=== PATIENT | female | born 1965 | race Caucasian/White ===

== ENCOUNTER 2022-02-10 05:46 | Inpatient (IN) ==
[2022-02-10] MEDS ORDERED: IOPAMIDOL 100 ML BOTTLE IV ONE (05:47)
[2022-02-10] MEDS ORDERED: morphine 4 MG/ML VIAL IV ONE (06:00)
[2022-02-10] MEDS ORDERED: LACTATED RINGERS 1,000 ML IV ONE (06:00)
[2022-02-10] MEDS ORDERED: ONDANSETRON 4 MG/2 ML VIAL IV ONE (06:00)
[2022-02-10] MEDS ORDERED: PANTOPRAZOLE 40 MG VIAL IV ONE (06:00)
[2022-02-10 06:43] LABS: Basophils # (Auto) 0.06 K/mcL (0.00-0.30); Basophils % (Auto) 0.9 % (0.0-2.0); Eosinophils % (Auto) 1.4 % (0.0-7.0); Hematocrit 38.6 % (34.1-44.9); Hemoglobin 13.1 g/dL (11.2-15.7); Lymphocytes # (Auto) 1.73 K/mcL (1.50-4.80); Lymphocytes % (Auto) 24.6 % (15.5-49.0); Mean Cell Volume 97.7 fL (80.0-100.0); Mean Corpuscular HGB Conc 33.9 g/dL (31.0-36.0); Mean Platelet Volume 9.8 fL (8.8-12.5); Monocytes # (Auto) 0.91 K/mcL (0.10-0.90); Neutrophils % (Auto) 59.7 % (38.0-78.0); Platelet Count 154 K/mcL (140-440); RBC 3.95 M/mcL (3.59-5.38); Red Cell Distribution Width 12.9 % (11.5-14.5)
[2022-02-10 06:59] LABS: Alcohol, Blood < 10.0 mg/dL; Alcohol,Blood < 0.010 gm/dL (<0.010)
[2022-02-10] MEDS ORDERED: LORazepam 2 MG/ML VIAL IV ONE (07:02)
[2022-02-10 07:03] LABS: ALT/SGPT 29 U/L (<40); AST/SGOT 37 U/L (<32); Albumin 4.5 gm/dL (3.2-5.2); Albumin/Globulin Ratio 1.3 (1.0-2.3); Alkaline Phosphatase 129 U/L (39-117); Blood Urea Nitrogen 6 mg/dL (6-20); Calcium 9.8 mg/dL (8.6-10.4); Carbon Dioxide 26 mmol/L (22-30); Chloride 94 mmol/L (96-108); Globulin 3.6 gm/dL (2.2-3.7); Glomerular Filtration Rate 83; Glucose 189 mg/dL (70-105)
--- NOTE | 2022-02-10 07:19 | Emergency Department Note ---
Abdominal Pain HPI General Chief Complaint: Nausea/Vomiting/Diarrhea Stated Complaint: Vomiting, Abdominal pain that radiates to flanks Time Seen by Provider: 02/10/22 05:50 Source: patient Mode of arrival: ambulatory Limitations: no limitations History of Present Illness HPI Narrative: Narrative: 56-year-old female history of GERD, daily alcohol drinking, some CKD presenting to the ED with acute abdominal pain. It started yesterday. Is described as epigastric burning-like pain that radiates outwards towards both of her sides. Associated with some nausea, no vomiting. States she is still having regular laura wel movements. But did have a slight bit of diarrhea yesterday. Denies any urinary symptoms vaginal symptoms. Denies any cardiorespiratory complaints or fever chills. Denies any prior abdominal surgeries. Related Data Home Medications Medication Instructions Recorded Confirmed biotin 1 mg capsule 1 mg PO .3xweekly 07/19/17 11/18/21 cranberry 400 mg capsule 400 mg PO .3xweekly 07/19/17 11/18/21 mecobalamin (vitamin B12) 5,000 5,000 mcg PO .3x weekly 07/19/17 11/18/21 mcg disintegrating tablet folic acid 400 mcg tablet 800 mcg PO .3 x weekly 02/13/19 11/18/21 calcium phosphate 250 mg-vitamin 1 tab PO QDAY 08/08/19 11/18/21 D3 10 mcg (400 unit) chewable tablet (Caltrate Gummy Bites) multivitamin 1 tab PO QAM 02/06/20 11/18/21 cholecalciferol (vitamin D3) 400 ea PO .x 5 days 11/12/20 11/18/21 Previous Rx's Medication Instructions Recorded methocarbamol 500 mg tablet 500 mg PO QHS #14 tabs 12/02/20 lisinopril 5 mg tablet 5 mg PO QDAY #90 tabs 07/30/21 Allergies Allergy/AdvReac Type Severity Reaction Status Date / Time No Known Drug Allergies Allergy Verified 02/10/22 05:54 Review of Systems ROS ROS Narrative: Narrative: All systems ED: reviewed and negative except as stated. [facility] Narrative Patient History Narrative: Narrative: Medical/Surgical/Family History All Active Problems (Updated 02/10/22 @ 07:24 by Tulio Valencia DO) Esophageal reflux (Chronic ~08/2016) Hyperlipidemia (Chronic) Alcohol use (Chronic) Atypical squamous cells of undetermined significance (ASC-US) on cervical Pap smear (Chronic) High blood pressure (Chronic ~2019) Protein in urine (Chronic ~2018) Persistent proteinuria (Chronic) Chronic Kidney Disease (Chronic) Encounter for screening colonoscopy for [id number] patient (Acute) CKD stage G1/A3, GFR > 90 and albumin creatinine ratio >300 mg/g (Acute) Cervical paraspinal muscle spasm (Acute) Subcutaneous mass of right thumb (Acute) Orthostatic proteinuria (Chronic) Volvulus (Acute) Medical History Alcohol use drinks 3-4 glasses or wine or beer a day Atypical squamous cells of undetermined significance (ASC-US) on cervical Pap smear Esophageal reflux (~08/2016) epigastric tenderness; intermittent; sometimes occurs in the middle of the night High blood pressure (~2018) Hyperlipidemia Protein in urine (~2018) Surgical History H/O thumb surgery (~1996) right thumb surgery for fracture and screws placed Family History Mother Hx of CABG Coronary artery disease Hyperlipidemia Hypertension Grandmother Breast cancer Other No pertinent family history Social History Alcohol Intake Frequency: 2+ drinks per day Substance Use: does not use Exam Narrative Narrative: Narrative: Constitutional: normally developed, appears in some pain and appears a bit anxious tremulous Head: Normocephalic, atraumatic, Eyes: No Icterus, ENT: Dry mucus membranes, mild tongue fasciculations Neck: Supple, Cardiac: Normal heart sounds, palpable radial pulses, no peripheral edema Pulmonary: Normal respiratory effort. Breath sounds clear, no wheeze, rhonchi, rales, Gastrointestinal: Abdomen soft, non-distended, she is tender throughout slight voluntary guarding no rebound nonrigid Musculoskeletal: No gross deformities, well perfused Skin: warm, dry Neuro: Alert and oriented. General Limitations: no limitations Course Vital Signs Vital signs: Vital Signs Temperature 36.6 C 02/10/22 05:48 Pulse Rate 66 02/10/22 05:48 Respiratory Rate 16 02/10/22 05:48 Blood Pressure 139/95 02/10/22 05:48 Pulse Oximetry (%) 98 02/10/22 05:48 Oxygen Delivery Method 02/10/22 05:48 Temperature 36.6 C 02/10/22 05:48 Pulse Rate 78 02/10/22 07:02 Respiratory Rate 16 02/10/22 05:48 Blood Pressure 137/106 02/10/22 06:31 Pulse Oximetry (%) 92 02/10/22 07:02 Oxygen Delivery Method 02/10/22 05:48 MDM MDM Narrative Medical decision making narrative: Narrative: Patient presents with abdominal pain work-up is initiated including labs urine and CT. Patient is treated symptomatically with analgesics, protonix, Zofran and fluid. Reevaluation she feels slightly better but still a bit tremulous, she is a daily drinker may have some mild alcohol withdrawal did give her a dose of 2 mg IV Ativan Twelve-lead EKG sinus rhythm 68 ME, QRS, QTc within normal no STEMI criteria there is a bit of a wandering baseline but no obvious acute ischemic changes noted CBC unremarkable, electrolytes tracely elevated anion gap 17, glucose 189 otherwise no significant abnormalities, tracely elevated AST, normal bilirubin also tracely elevated lipase 65, ethanol negative Reevaluation is feeling better, rpt exam: no longer guarding, abdomen soft CT shows cecal volvulus, pt updated, will consult surg. 0700: awaiting call back from Dr watkins, signed out to Dr Wing Lab Data Result diagrams: 02/10/22 06:03 02/10/22 06:02 Labs: Lab Results 02/10/22 02/10/22 02/10/22 Range/Units 06:02 06:03 06:20 WBC 7.0 (4.5-11.0) K/mcL RBC 3.95 (3.59-5.38) M/mcL Hgb 13.1 (11.2-15.7) g/dL Hct 38.6 (34.1-44.9) % MCV 97.7 (80.0-100.0) fL MCH 33.2 (26.0-34.0) pg MCHC 33.9 (31.0-36.0) g/dL RDW 12.9 (11.5-14.5) % Plt Count 154 (140-440) K/mcL MPV 9.8 (8.8-12.5) fL Immature Gran % (Auto) 0.4 (0.0-0.5) % Neut % (Auto) 59.7 (38.0-78.0) % Lymph % (Auto) 24.6 (15.5-49.0) % Burnet % (Auto) 13.0 H (1.0-12.0) % Eos % (Auto) 1.4 (0.0-7.0) % Baso % (Auto) 0.9 (0.0-2.0) % Lymph # (Auto) 1.73 (1.50-4.80) K/mcL [place]et # (Auto) 0.91 H (0.10-0.90) K/mcL Eos # (Auto) 0.10 (0.00-0.70) K/mcL Baso # (Auto) 0.06 (0.00-0.30) K/mcL Immature Gran # 0.03 (0.00-0.05) K/mcl Absolute Neutrophils 4.19 (1.80-8.00) K/mcL Sodium 137 (133-145) mmol/L Potassium 3.7 (3.3-5.1) mmol/L Chloride 94 L (96-108) mmol/L Carbon Dioxide 26 (22-30) mmol/L Anion Gap 17.0 H (8.0-16.0) BUN 6 (6-20) mg/dL Creatinine 0.8 (0.6-1.1) mg/dL POC Creatinine GFR Calculation 83 Glucose 189 H (70-105) mg/dL Calcium 9.8 (8.6-10.4) mg/dL Total Bilirubin 1.0 (0.1-1.0) mg/dL AST 37 H (<32) U/L ALT 29 (<40) U/L Alkaline Phosphatase 129 H (39-117) U/L Total Protein 8.1 (5.9-8.4) gm/dL Albumin 4.5 (3.2-5.2) gm/dL Globulin 3.6 (2.2-3.7) gm/dL Albumin/Globulin Ratio 1.3 (1.0-2.3) Lipase 65 H (7-60) U/L Ethyl Alcohol mg/dL < 10.0 mg/dL Ethyl Alcohol g/dL < 0.010 (<0.010) gm/dL 10/27/22 10/27/22 Range/Units 06:34 06:34 WBC (4.5-11.0) K/mcL RBC (3.59-5.38) M/mcL Hgb (11.2-15.7) g/dL Hct (34.1-44.9) % MCV (80.0-100.0) fL MCH (26.0-34.0) pg MCHC (31.0-36.0) g/dL RDW (11.5-14.5) % Plt Count (140-440) K/mcL MPV (8.8-12.5) fL Immature Gran % (Auto) (0.0-0.5) % Neut % (Auto) (38.0-78.0) % Lymph % (Auto) (15.5-49.0) % Burnet % (Auto) (1.0-12.0) % Eos % (Auto) (0.0-7.0) % Baso % (Auto) (0.0-2.0) % Lymph # (Auto) (1.50-4.80) K/mcL Burnet # (Auto) (0.10-0.90) K/mcL Eos # (Auto) (0.00-0.70) K/mcL Baso # (Auto) (0.00-0.30) K/mcL Immature Gran # (0.00-0.05) K/mcl Absolute Neutrophils (1.80-8.00) K/mcL Sodium (133-145) mmol/L Potassium (3.3-5.1) mmol/L Chloride (96-108) mmol/L Carbon Dioxide (22-30) mmol/L Anion Gap (8.0-16.0) BUN (6-20) mg/dL Creatinine (0.6-1.1) mg/dL POC Creatinine 0.7 GFR Calculation Glucose (70-105) mg/dL Calcium (8.6-10.4) mg/dL Total Bilirubin (0.1-1.0) mg/dL AST (<32) U/L ALT (<40) U/L Alkaline Phosphatase (39-117) U/L Total Protein (5.9-8.4) gm/dL Albumin (3.2-5.2) gm/dL Globulin (2.2-3.7) gm/dL Albumin/Globulin Ratio (1.0-2.3) Lipase (7-60) U/L Ethyl Alcohol mg/dL mg/dL Ethyl Alcohol g/dL (<0.010) gm/dL Discharge Plan Patient/Caregiver Discharge Instructions Pt seen by LOG CHAIN WORKER/PA only: No Clinical Impression: Volvulus Patient Disposition: Still a Patient Condition: Good Follow up with: Pina West PA-C [Primary Care Provider] - Prescriptions: No Action mecobalamin (vitamin B12) 5,000 mcg tablet,disintegrating 5,000 mcg PO .3x weekly folic acid 400 mcg tablet 800 mcg PO .3 x weekly Label Comments: sometimes takes 800mg cholecalciferol (vitamin D3) 400 ea PO .x 5 days lisinopril 5 mg tablet 5 mg PO QDAY Qty: 90 3RF methocarbamol 500 mg tablet 500 mg PO QHS Qty: 14 0RF cranberry 400 mg capsule 400 mg PO .3xweekly biotin 1 mg capsule 1 mg PO .3xweekly calcium phosphate-vitamin D3 [Caltrate Gummy Bites] 250-400 mg-unit tablet,chewable 1 tab PO QDAY multivitamin Tablet 1 tab PO QAM
--- NOTE | 2022-02-10 07:24 | Cat Scan Report ---
INDICATION: mid abdominal pain, n/v COMPARISON: None. TECHNIQUE: Axial images were obtained through the abdomen and pelvis. Sagittally and coronally reformatted images. 70 mL Isovue 370 injected intravenously. Oral contrast material was not administered. FINDINGS: Lung bases:Negative. No pulmonary parenchymal nodule. No pleural fluid or pericardial fluid Liver:Low density liver consistent with hepatic steatosis. There is no hepatic mass. Liver contour is smooth. Gallbladder, bilary:No calcified gallstones. No gallbladder wall thickening. No dilated intra or extrahepatic bile ducts. Spleen:No splenomegaly. Normal enhancement of splenic and portal veins. Pancreas:No pancreatic mass. No peripancreatic abnormality Adrenal glands:Negative Kidneys,ureters,bladder:No solid renal mass. No hydronephrosis. No obstructing or nonobstructing calculi. No hydroureter. No ureteral calculus. No bladder stone. No detectable bladder mass. Gastrointestinal:There is a cecal volvulus. The cecum is distended and filled with fluid and gas. Cecum measures approximately 8 cm in cross-sectional diameter. There is a "whirlpool sign" with swirling mesentery and colon. There is no evidence for cecal ischemia. No localized wall thickening. There is no free air. Transverse colon, descending colon, sigmoid colon, rectum are normal. Small bowel is not significantly distended. No focal abnormality Negative stomach and duodenum. No focal abnormality. Appendix: The appendix is nonvisualized. No evidence for appendicitis Vascular:Negative abdominal aorta. Superior mesenteric artery and celiac trunk are normal. Normal opacification of the inferior mesenteric artery Lymphatic:No retroperitoneal or mesenteric adenopathy Mesentery, peritoneum: No free intraperitoneal air or fluid. No mesenteric or retroperitoneal mass. No intra-abdominal abscess. Reproductive:Uterus is anteflexed. No adnexal mass Musculoskeletal:No lumbar compression fractures. Sacrum and pelvis are negative. No hip fracture. No abdominal wall or inguinal hernia IMPRESSION: 1. Cecal volvulus 2. Distended cecum. There is no pneumoperitoneum. No evidence for cecal wall infarction 3. Hepatic steatosis 4. Dr. Valencia was called with these results, 02/10/2022, 0700 The exam was performed using radiation dose optimization techniques including, but not limited to, automated exposure control, adjustment of the mA and/or kV according to patient size and use of iterative reconstruction technique. Interpreted and Authenticated by: Billy Armstrong 02/10/22
[2022-02-10] MEDS ORDERED: LACTATED RINGERS 1,000 ML IV SCH ×2 (07:30→14:15)
[2022-02-10] MEDS ORDERED: ONDANSETRON 4 MG/2 ML VIAL IV PRN ×2 (07:44→14:09)
--- NOTE | 2022-02-10 07:48 | Emergency Department Note ---
Course Course Course Narrative: Patient is a 56-year-old female signed out to me by Dr. Black. Patient was found to have cecal volvulus, and was pending only discussions with surgery. Vital Signs Vital signs: Vital Signs Temperature 97.9 F 02/10/22 05:48 Pulse Rate 66 02/10/22 05:48 Respiratory Rate 16 02/10/22 05:48 Blood Pressure 139/95 02/10/22 05:48 Pulse Oximetry (%) 98 02/10/22 05:48 Oxygen Delivery Method 02/10/22 05:48 Temperature 97.9 F 02/10/22 05:48 Pulse Rate 86 02/10/22 07:34 Respiratory Rate 16 02/10/22 05:48 Blood Pressure 136/79 02/10/22 07:31 Pulse Oximetry (%) 93 02/10/22 07:34 Oxygen Delivery Method 02/10/22 05:48 MDM MDM Narrative Medical decision making narrative: Narrative: Patient is a 56-year-old female who presented to the emergency department due to abdominal pain. Patient was found to have a cecal volvulus and was pending only discussions with surgery. I spoke to Dr. Pierce who agreed to see and evaluate this patient. He requested admission. We will place orders for admission at this time. Lab Data Result diagrams: 02/10/22 06:03 02/10/22 06:02 Labs: Lab Results 02/10/22 02/10/22 02/10/22 Range/Units 06:02 06:03 06:20 WBC 7.0 (4.5-11.0) K/mcL RBC 3.95 (3.59-5.38) M/mcL Hgb 13.1 (11.2-15.7) g/dL Hct 38.6 (34.1-44.9) % MCV 97.7 (80.0-100.0) fL MCH 33.2 (26.0-34.0) pg MCHC 33.9 (31.0-36.0) g/dL RDW 12.9 (11.5-14.5) % Plt Count 154 (140-440) K/mcL MPV 9.8 (8.8-12.5) fL Immature Gran % (Auto) 0.4 (0.0-0.5) % Neut % (Auto) 59.7 (38.0-78.0) % Lymph % (Auto) 24.6 (15.5-49.0) % Blaine % (Auto) 13.0 H (1.0-12.0) % Eos % (Auto) 1.4 (0.0-7.0) % Baso % (Auto) 0.9 (0.0-2.0) % Lymph # (Auto) 1.73 (1.50-4.80) K/mcL [place]aine # (Auto) 0.91 H (0.10-0.90) K/mcL Eos # (Auto) 0.10 (0.00-0.70) K/mcL Baso # (Auto) 0.06 (0.00-0.30) K/mcL Immature Gran # 0.03 (0.00-0.05) K/mcl Absolute Neutrophils 4.19 (1.80-8.00) K/mcL Sodium 137 (133-145) mmol/L Potassium 3.7 (3.3-5.1) mmol/L Chloride 94 L (96-108) mmol/L Carbon Dioxide 26 (22-30) mmol/L Anion Gap 17.0 H (8.0-16.0) BUN 6 (6-20) mg/dL Creatinine 0.8 (0.6-1.1) mg/dL POC Creatinine GFR Calculation 83 Glucose 189 H (70-105) mg/dL Calcium 9.8 (8.6-10.4) mg/dL Total Bilirubin 1.0 (0.1-1.0) mg/dL AST 37 H (<32) U/L ALT 29 (<40) U/L Alkaline Phosphatase 129 H (39-117) U/L Total Protein 8.1 (5.9-8.4) gm/dL Albumin 4.5 (3.2-5.2) gm/dL Globulin 3.6 (2.2-3.7) gm/dL Albumin/Globulin Ratio 1.3 (1.0-2.3) Lipase 65 H (7-60) U/L Ethyl Alcohol mg/dL < 10.0 mg/dL Ethyl Alcohol g/dL < 0.010 (<0.010) gm/dL 02/10/22 02/10/22 Range/Units 06:34 06:34 WBC (4.5-11.0) K/mcL RBC (3.59-5.38) M/mcL Hgb (11.2-15.7) g/dL Hct (34.1-44.9) % MCV (80.0-100.0) fL MCH (26.0-34.0) pg MCHC (31.0-36.0) g/dL RDW (11.5-14.5) % Plt Count (140-440) K/mcL MPV (8.8-12.5) fL Immature Gran % (Auto) (0.0-0.5) % Neut % (Auto) (38.0-78.0) % Lymph % (Auto) (15.5-49.0) % Blaine % (Auto) (1.0-12.0) % Eos % (Auto) (0.0-7.0) % Baso % (Auto) (0.0-2.0) % Lymph # (Auto) (1.50-4.80) K/mcL Blaine # (Auto) (0.10-0.90) K/mcL Eos # (Auto) (0.00-0.70) K/mcL Baso # (Auto) (0.00-0.30) K/mcL Immature Gran # (0.00-0.05) K/mcl Absolute Neutrophils (1.80-8.00) K/mcL Sodium (133-145) mmol/L Potassium (3.3-5.1) mmol/L Chloride (96-108) mmol/L Carbon Dioxide (22-30) mmol/L Anion Gap (8.0-16.0) BUN (6-20) mg/dL Creatinine (0.6-1.1) mg/dL POC Creatinine 0.7 GFR Calculation Glucose (70-105) mg/dL Calcium (8.6-10.4) mg/dL Total Bilirubin (0.1-1.0) mg/dL AST (<32) U/L ALT (<40) U/L Alkaline Phosphatase (39-117) U/L Total Protein (5.9-8.4) gm/dL Albumin (3.2-5.2) gm/dL Globulin (2.2-3.7) gm/dL Albumin/Globulin Ratio (1.0-2.3) Lipase (7-60) U/L Ethyl Alcohol mg/dL mg/dL Ethyl Alcohol g/dL (<0.010) gm/dL Discharge Plan Patient/Caregiver Discharge Instructions Pt seen by SILK SNAPPER/PA only: No Clinical Impression: Volvulus Patient Disposition: Still a Patient Condition: Good Follow up with: Pina West PA-C [Primary Care Provider] - Prescriptions: No Action mecobalamin (vitamin B12) 5,000 mcg tablet,disintegrating 5,000 mcg PO .3x weekly folic acid 400 mcg tablet 800 mcg PO .3 x weekly Label Comments: sometimes takes 800mg cholecalciferol (vitamin D3) 400 ea PO .x 5 days lisinopril 5 mg tablet 5 mg PO QDAY Qty: 90 3RF methocarbamol 500 mg tablet 500 mg PO QHS Qty: 14 0RF cranberry 400 mg capsule 400 mg PO .3xweekly biotin 1 mg capsule 1 mg PO .3xweekly calcium phosphate-vitamin D3 [Caltrate Gummy Bites] 250-400 mg-unit t ablet,chewable 1 tab PO QDAY multivitamin Tablet 1 tab PO QAM
[2022-02-10 08:24] LABS: INR 0.9 (0.9-1.1)
[2022-02-10] MEDS: morphine 2 MG/ML VIAL IV PRN ×3 (08:35→12:50)
[2022-02-10] MEDS ORDERED: PROMETHAZINE 25 MG/ML VIAL IV PRN ×2 (08:55→14:09)
[2022-02-10] MEDS ORDERED: PIPERACILLIN SODIUM/TAZOBACTAM 3.375 GM in DEXTROSE 5% IN WATER 50 ML IV SCH (09:00)
--- NOTE | 2022-02-10 09:01 | XRay Report ---
INDICATION: Pre Op TECHNIQUE: AP portable upright chest x-ray COMPARISON: None FINDINGS: Lungs:Lungs are negative. No focal pulmonary parenchymal infiltrate or mass Heart, vascular:No significant cardiomegaly. Pulmonary vascularity is normal. No pulmonary edema or pulmonary congestion Mediastinum, zeke:No mediastinal widening. No hilar mass Pleura:No pleural fluid. No pleural-based mass or calcification Skeletal:Negative. IMPRESSION: Negative AP chest x-ray Interpreted and Authenticated by: Billy Armstrong 02/10/22
[2022-02-10 09:08] LABS: POC INR 1.1 (0.8-1.2); POC Pro Time 13.2 (11.9-14.5)
--- NOTE | 2022-02-10 09:17 | EKG ---
[facility] Test Date: 2022-02-10 Pat Name: Alice Melchor Department: ED Room: Gender: Female Procedure Analyst: : 1965 Requested By: Tulio Valencia Order Number: [id number] Reading MD: Mich Cuevas Measurements Intervals [place] Rate: 68 P: 79 SD: 135 QRS: 63 QRSD: 92 T: 62 QT: 440 QTc: 469 Interpretive Statements Sinus rhythm Minimal ST depression, lateral leads Baseline wander in lead(s) III,aVF,V1,V2 Electronically Signed On 02-10-2022 9:17:17 PDT by Mich Cuevas /store/M0/[id number].pdf
[2022-02-10] MEDS: LACTATED RINGERS 1,000 ML IV SCH ×2 (10:15→18:06)
[2022-02-10] MEDS: PIPERACILLIN SODIUM/TAZOBACTAM 3.375 GM in DEXTROSE 5% IN WATER 50 ML IV SCH ×3 (12:08→23:45)
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
[2022-02-10] MEDS ORDERED: ROPIVACAINE HCL/PF 20 ML VIAL IJ ONE (13:30)
[2022-02-10] MEDS ORDERED: MAGNESIUM SULFATE 2 GM/50 ML BAG IV ONE (13:30)
[2022-02-10] MEDS ORDERED: ROCURONIUM 10 MG/ML ML IV ONE (13:30)
[2022-02-10] MEDS ORDERED: KETOROLAC 30 MG/ML VIAL ONE (13:30)
[2022-02-10] MEDS ORDERED: DEXAMETHASONE 10 MG/ML VIAL ONE (13:30)
[2022-02-10] MEDS ORDERED: PROPOFOL 200 MG/20 ML VIAL IV ONE (13:30)
[2022-02-10] MEDS ORDERED: fentaNYL 100 MCG/2 ML VIAL IV ONE (13:30)
[2022-02-10] MEDS ORDERED: PHENYLephrine 1 MG/10 ML SYRINGE (ANEST) ONE (13:30)
[2022-02-10] MEDS ORDERED: SUCCINYLCHOLINE 20 MG/ML ML IV ONE (13:30)
[2022-02-10] MEDS ORDERED: HYDROmorphone 1 MG/ML SYRINGE ONE (13:30)
[2022-02-10] MEDS ORDERED: GLYCOPYRROLATE 0.2 MG/ML VIAL IV ONE (13:30)
[2022-02-10] MEDS ORDERED: MIDAZOLAM 2 MG/2 ML VIAL ONE (13:30)
[2022-02-10] MEDS ORDERED: KETAMINE 50 MG/ML Syringe (ANEST) IV ONE (13:30)
[2022-02-10] MEDS ORDERED: ONDANSETRON 4 MG/2 ML VIAL ONE (13:30)
[2022-02-10] MEDS ORDERED: LIDOCAINE HCL/PF 100 MG/5 ML SYRINGE IV ONE (13:30)
[2022-02-10] MEDS ORDERED: LABETALOL 5 MG/ML ML IV PRN (14:09)
[2022-02-10] MEDS ORDERED: IPRATROPIUM/ALBUTEROL 3 ML AMPUL.NEB NEB PRN (14:09)
[2022-02-10] MEDS ORDERED: METHOCARBAMOL 1,000 MG/10 ML VIAL IV PRN (14:09)
[2022-02-10] MEDS ORDERED: fentaNYL 100 MCG/2 ML VIAL IV PRN (14:09)
[2022-02-10] MEDS ORDERED: LACTATED RINGERS 250 ML IV PRN (14:09)
[2022-02-10] MEDS ORDERED: ACETAMINOPHEN 1,000 MG/100 ML BAG IV ONE (14:09)
[2022-02-10] MEDS ORDERED: HYDROmorphone 0.5 MG/0.5 ML SYRINGE IV PRN (14:09)
[2022-02-10] MEDS ORDERED: MEPERIDINE 25 MG/ML VIAL IV PRN (14:09)
[2022-02-10] MEDS ORDERED: METOPROLOL TARTRATE 5 MG/5 ML VIAL IV PRN (14:09)
[2022-02-10] MEDS ORDERED: NALOXONE HCL 0.4 MG/ML VIAL IV PRN (14:09)
--- NOTE | 2022-02-10 14:56 | Brief Operative Note ---
Brief Operative Note Date of procedure: 02/10/22 Pre-op diagnosis: CECAL VOLVULUS Post-op diagnosis: other (CECAL VOLVULUS) Procedure: RIGHT COLECTOMY Grafts/Implants: No Anesthesia: GETA Findings: MOBILE CECUM WITH 360 DEGREE VOLVULUS AND MASSIVE DILATION Complications: none Surgeon: Divya Pierce Estimated blood loss (cc): 25 Specimens Removed/Pathology: other (CECUM AND APPENDIX) Condition: stable Disposition: PACU
[2022-02-10] MEDS ORDERED: LORazepam 2 MG/ML VIAL IV PRN (15:01)
[2022-02-10] MEDS ORDERED: HYDROmorphone 1 MG/ML SYRINGE IV PRN (16:17)
[2022-02-10] MEDS: PANTOPRAZOLE 40 MG VIAL IV SCH (17:39)
[2022-02-10] MEDS: ACETAMINOPHEN 1,000 MG/100 ML BAG IV SCH (21:04)
[2022-02-10] MEDS ORDERED: BENZOCAINE 1 SPRAY 20% BOTTLE TOPICAL PRN (22:10)
[2022-02-11] MEDS: ACETAMINOPHEN 1,000 MG/100 ML BAG IV SCH ×3 (03:13→14:45)
[2022-02-11] MEDS: LACTATED RINGERS 1,000 ML IV SCH ×3 (03:13→23:28)
[2022-02-11] MEDS: PIPERACILLIN SODIUM/TAZOBACTAM 3.375 GM in DEXTROSE 5% IN WATER 50 ML IV SCH ×4 (05:34→23:27)
[2022-02-11] MEDS: PANTOPRAZOLE 40 MG VIAL IV SCH ×2 (07:33→17:15)
--- NOTE | 2022-02-11 14:09 | General Surgery Progress Note ---
SUBJECTIVE Subjective Patient information: Note initiated : 02/11/22 at 2:09 pm Service Date, if different from initiated Date: [] Patient: Alice Melchor 56 y/o F admitted on 02/10/22 for Vomiting, Abdominal pain that radiates to flanks. Chief Complaint: [] Principal diagnosis: cecal volvulus Interval history: Patient states that she is slightly improved. Her pain is controlled. She denies nausea. She has not had flatus so far. Constitutional Vitals: Vital Signs Temp Pulse Resp BP Pulse Ox O2 Del Method O2 Flow Rate 98.1 F 82 20 108/62 99 6 02/11/22 12:00 02/11/22 03:48 02/11/22 12:00 02/11/22 12:00 02/11/22 12:00 02/11/22 12:00 02/10/22 15:45 Period Temp Pulse Resp BP Sys/Gonzalez Pulse Ox O2 Del Method O2 Flow Rate Last 24 Hr 91.2 F-99.9 F 70-99 8-20 96-140/61-97 92-100 Room Air-Simple Mask 6-6 Intake and Output 02/11/22 02/11/22 02/11/22 05:59 13:59 21:59 Intake Total 150 200 Output Total 825 Balance -675 200 Weight 135 lb 1 oz Patient Weight 02/12/22 05:59 Weight 135 lb 1 oz Intake & Output: Intake & Output 02/11/22 02/11/22 02/11/22 05:59 13:59 21:59 Intake Total 150 200 Output Total 825 Balance -675 200 Weight 135 lb 1 oz Intake: IV 150 200 Zosyn 3.375 gm In Dextrose 5% 50 100 in Water 50 ml @ 100 mls/hr IV Q6H [facility] Rx#:[id number] Output: Urine Catheter Amount 825 Other: Urine Appearance Clear Urine Color Yellow Neck Neck exam: Present full ROM and normal inspection Respiratory Respiratory exam: Present normal respiratory exam Cardiovascular Cardiovascular exam: Present normal rate and rhythm, RRR, +S1 and +S2; Absent JVD GI/Abdominal GI/Abdominal exam: Present normal bowel sounds and tenderness (Mild incisional tenderness); Absent distended Extremities Exam Extremities exam: Present normal inspection and neurovascular intact Neurological Exam Neurological exam: Present oriented X3 and reflexes normal; Absent motor sensory deficit Psychiatric Psychiatric exam: Present normal affect and normal mood A/P Assessment and plan (1) Cecal volvulus: Status: Acute (2) Alcohol abuse: Status: Acute (3) Esophageal reflux: Status: Chronic Comment: epigastric tenderness; intermittent; sometimes occurs in the middle of the night Qualifiers: Esophagitis presence: esophagitis presence not specified Qualified Code(s): K21.9 - Gastro-esophageal reflux disease without esophagitis; K21.9 - Gastro-esophageal reflux disease without esophagitis; K21.9 - Gastro-esophageal reflux disease without esophagitis Plan Patient is doing well Check CBC, inpatient panel, abdominal x-rays in the morning And metoclopramide IV every 6 hours Time Spent With Patient Time: Total time spent is greater than 50% in coordination of care (as documented) at patient's floor/unit and/or counseling patient:
[2022-02-11] MEDS: morphine 2 MG/ML VIAL IV PRN (14:44)
--- NOTE | 2022-02-11 14:51 | XRay Report ---
INDICATION: FOR F/U OF ILEUS TECHNIQUE: Supine and upright abdomen. COMPARISON: Previous CT scan dated 02/10/2022 FINDINGS:There is an esophagogastric tube is curled in the stomach. The tip is in the distal body. There are skin [place] in a vertical midline incision. There is gas and fecal material within the colon. Findings are consistent with postoperative ileus. No evidence for mechanical small bowel obstruction. There is mild pneumoperitoneum. This is considered benign and postsurgical IMPRESSION: Findings consistent with postsurgical ileus Interpreted and Authenticated by: Billy Armstrong 02/11/22
[2022-02-11] MEDS: METOCLOPRAMIDE 10 MG/2 ML VIAL IV SCH ×2 (17:16→23:27)
[2022-02-12] MEDS: morphine 2 MG/ML VIAL IV PRN (00:11)
[2022-02-12] MEDS: LACTATED RINGERS 1,000 ML IV SCH ×3 (00:11→19:52)
[2022-02-12] MEDS: METOCLOPRAMIDE 10 MG/2 ML VIAL IV SCH ×4 (05:15→23:18)
[2022-02-12] MEDS: PIPERACILLIN SODIUM/TAZOBACTAM 3.375 GM in DEXTROSE 5% IN WATER 50 ML IV SCH ×4 (05:16→23:18)
[2022-02-12 07:04] LABS: Basophils # (Auto) 0.03 K/mcL (0.00-0.30); Basophils % (Auto) 0.4 % (0.0-2.0); Eosinophils # (Auto) 0.05 K/mcL (0.00-0.70); Eosinophils % (Auto) 0.6 % (0.0-7.0); Hematocrit 33.8 % (34.1-44.9); Hemoglobin 11.1 g/dL (11.2-15.7); Lymphocytes % (Auto) 19.2 % (15.5-49.0); Mean Cell Volume 100.9 fL (80.0-100.0); Mean Corpuscular HGB Conc 32.8 g/dL (31.0-36.0); Mean Platelet Volume 9.9 fL (8.8-12.5); Monocytes % (Auto) 10.2 % (1.0-12.0); Neutrophils % (Auto) 69.2 % (38.0-78.0); Platelet Count 139 K/mcL (140-440); RBC 3.35 M/mcL (3.59-5.38); Red Cell Distribution Width 12.7 % (11.5-14.5); WBC 7.8 K/mcL (4.5-11.0)
[2022-02-12 07:40] LABS: ALT/SGPT 15 U/L (<40); AST/SGOT 21 U/L (<32); Albumin 3.5 gm/dL (3.2-5.2); Albumin/Globulin Ratio 1.1 (1.0-2.3); Alkaline Phosphatase 88 U/L (39-117); Bilirubin,Direct < 0.2 mg/dL (0-0.3); Bilirubin,Total 0.5 mg/dL (0.1-1.0); Blood Urea Nitrogen 5 mg/dL (6-20); Calcium 8.9 mg/dL (8.6-10.4); Carbon Dioxide 27 mmol/L (22-30); Chloride 100 mmol/L (96-108); Globulin 3.1 gm/dL (2.2-3.7); Glomerular Filtration Rate 117; Glucose 96 mg/dL (70-105); Lactate Dehydrogenase 226 U/L (135-225); Triglycerides 101 mg/dL (<150); Uric Acid 1.5 mg/dL (2.5-8.0)
[2022-02-12] MEDS: PANTOPRAZOLE 40 MG VIAL IV SCH ×2 (08:12→17:14)
--- NOTE | 2022-02-12 08:47 | XRay Report ---
INDICATION: FOR F/U OF ILEUS TECHNIQUE: Supine and upright abdomen. COMPARISON: Previous plain film examination dated 02/11/2022. Previous CT scan dated 02/10/2022 FINDINGS:Esophagogastric tube remains curled within the stomach with its tip in the body. There is bowel gas which is predominantly colonic. Bowel gas is somewhat increased since 02/11/2022. Findings are not typical of mechanical small bowel obstruction No biliary or portal venous gas. No pneumatosis There is persistent mild pneumoperitoneum, secondary to previous surgery. IMPRESSION: 1. Bowel gas remains most consistent with postoperative ileus 2. Mild pneumatosis secondary to previous surgery Interpreted and Authenticated by: Billy Armstrong 02/12/22
--- NOTE | 2022-02-12 16:39 | General Surgery Progress Note ---
SUBJECTIVE Subjective Patient information: Note initiated : 02/12/22 at 4:38 pm Service Date, if different from initiated Date: [] Patient: Alice Melchor 56 y/o F admitted on 02/10/22 for Vomiting, Abdominal pain that radiates to flanks. Chief Complaint: [] Principal diagnosis: cecal volvulus Interval history: Patient is clinically stable. Her pain is controlled. She denies nausea. Her Constitutional Vitals: Vital Signs Temp Pulse Resp BP Pulse Ox O2 Del Method O2 Flow Rate 99 F 97 H 14 152/93 99 6 02/12/22 16:00 02/12/22 16:00 02/12/22 16:00 02/12/22 16:00 02/12/22 16:00 02/12/22 16:00 02/10/22 15:45 Period Temp Pulse Resp BP Sys/Gonzalez Pulse Ox O2 Del Method O2 Flow Rate Last 24 Hr 99 F-100.2 F 83-97 12-17 116-152/71-93 97-99 Room Air-Room Air Intake and Output 02/12/22 02/12/22 02/12/22 05:59 13:59 21:59 Intake Total 1030 1100 Output Total 1550 Balance -520 1100 Intake & Output: Intake & Output 02/12/22 02/12/22 02/12/22 05:59 13:59 21:59 Intake Total 1030 1100 Output Total 1550 Balance -520 1100 Intake: IV 1030 1100 Lactated Ringers 1,000 ml @ 473 912 3883 mls/hr IV .Q10H [facility] Rx#: [id number] Zosyn 3.375 gm In Dextrose 5% 50 100 in Water 50 ml @ 100 mls/hr IV Q6H [facility] Rx#:[id number] Output: Gastric Drainage 100 NG/OG 100 Urine Catheter Amount 1450 Other: Meal Ice chips Percent of Meal Consumed 100% Feeding Ability Independent Urine Appearance Clear Uretheral (Ruiz) Clear Clear Urine Color Yellow Uretheral (Ruiz) Yellow Yellow Neck Neck exam: Present full ROM and normal inspection Respiratory Respiratory exam: Present normal respiratory exam and CTAB Cardiovascular Cardiovascular exam: Present normal rate and rhythm, RRR, +S1 and +S2 GI/Abdominal GI/Abdominal exam: Present normal bowel sounds, soft, distended (Mild distention) and tenderness (Mild incisional tenderness) Extremities Exam Extremities exam: Present full ROM, normal inspection and neurovascular intact Neurological Exam Neurological exam: Present oriented X3 and reflexes normal Psychiatric Psychiatric exam: Present normal affect and normal mood A/P Assessment and plan (1) Cecal volvulus: Status: Acute (2) Alcohol abuse: Status: Acute (3) Esophageal reflux: Status: Chronic Comment: epigastric tenderness; intermittent; sometimes occurs in the middle of the night Qualifiers: Esophagitis presence: esophagitis presence not specified Qualified Code(s): K21.9 - Gastro-esophageal reflux disease without esophagitis; K21.9 - Gastro-esophageal reflux disease without esophagitis; K21.9 - Gastro-esophageal reflux disease without esophagitis Plan Clamping G-tube Discontinue Ruiz catheter Sips of liquids Check CBC and inpatient panel Time Spent With Patient Time: Total time spent is greater than 50% in coordination of care (as documented) at patient's floor/unit and/or counseling patient:
[2022-02-12] MEDS ORDERED: ACETAMINOPHEN 325 MG TABLET PO PRN (19:39)
[2022-02-13] MEDS: LACTATED RINGERS 1,000 ML IV SCH ×2 (03:13→05:46)
[2022-02-13] MEDS: METOCLOPRAMIDE 10 MG/2 ML VIAL IV SCH ×4 (05:10→23:54)
[2022-02-13] MEDS: PIPERACILLIN SODIUM/TAZOBACTAM 3.375 GM in DEXTROSE 5% IN WATER 50 ML IV SCH ×4 (05:10→23:54)
[2022-02-13 07:13] LABS: Basophils # (Auto) 0.06 K/mcL (0.00-0.30); Basophils % (Auto) 0.8 % (0.0-2.0); Eosinophils # (Auto) 0.12 K/mcL (0.00-0.70); Eosinophils % (Auto) 1.5 % (0.0-7.0); Hematocrit 34.2 % (34.1-44.9); Hemoglobin 11.5 g/dL (11.2-15.7); Lymphocytes # (Auto) 1.43 K/mcL (1.50-4.80); Mean Cell Volume 99.7 fL (80.0-100.0); Mean Corpuscular HGB Conc 33.6 g/dL (31.0-36.0); Mean Platelet Volume 9.7 fL (8.8-12.5); Monocytes # (Auto) 0.88 K/mcL (0.10-0.90); Monocytes % (Auto) 11.1 % (1.0-12.0); Neutrophils % (Auto) 68.3 % (38.0-78.0); Platelet Count 146 K/mcL (140-440); RBC 3.43 M/mcL (3.59-5.38); Red Cell Distribution Width 12.3 % (11.5-14.5); WBC 7.9 K/mcL (4.5-11.0)
[2022-02-13] MEDS: PANTOPRAZOLE 40 MG VIAL IV SCH ×2 (07:30→16:55)
[2022-02-13 07:53] LABS: ALT/SGPT 13 U/L (<40); AST/SGOT 18 U/L (<32); Albumin 3.5 gm/dL (3.2-5.2); Albumin/Globulin Ratio 1.1 (1.0-2.3); Alkaline Phosphatase 92 U/L (39-117); Bilirubin,Direct < 0.2 mg/dL (0-0.3); Bilirubin,Total 0.5 mg/dL (0.1-1.0); Blood Urea Nitrogen 6 mg/dL (6-20); Calcium 9.2 mg/dL (8.6-10.4); Carbon Dioxide 24 mmol/L (22-30); Chloride 99 mmol/L (96-108); Globulin 3.2 gm/dL (2.2-3.7); Glomerular Filtration Rate 109; Glucose 84 mg/dL (70-105); Lactate Dehydrogenase 244 U/L (135-225); Phosphorous 3.8 mg/dL (2.5-4.5); Triglycerides 103 mg/dL (<150); Uric Acid 2.1 mg/dL (2.5-8.0)
--- NOTE | 2022-02-13 11:07 | General Surgery Progress Note ---
SUBJECTIVE Subjective Patient information: Note initiated : 02/13/22 at 11:05 am Service Date, if different from initiated Date: [] Patient: Alice Melchor 56 y/o F admitted on 02/10/22 for Vomiting, Abdominal pain that radiates to flanks. Chief Complaint: [] Principal diagnosis: cecal volvulus Interval history: Patient states that she feels better. She has had flatus but no bowel movement. She has tolerated having her nasogastric tube clamped for about 20 hours. She has had clear liquids l and tolerated well. She denies abdominal distention. White blood count 7.9, hemoglobin 11.5, hematocrit 34.2, Constitutional Vitals: Vital Signs Temp Pulse Resp BP Pulse Ox O2 Del Method O2 Flow Rate 99.5 F H 73 16 135/88 96 6 02/13/22 07:52 02/13/22 03:17 02/13/22 07:52 02/13/22 07:52 02/13/22 07:52 02/13/22 07:52 02/10/22 15:45 Period Temp Pulse Resp BP Sys/Gonzalez Pulse Ox O2 Del Method O2 Flow Rate Last 24 Hr 99 F-99.7 F 72-97 14-17 135-152/81-93 96-99 Room Air-Room Air Intake and Output 02/12/22 02/13/22 02/13/22 21:59 05:59 13:59 Intake Total 50 1580 Output Total 1999 1224 Balance -1950 355 Weight 132 lb 1 oz Intake & Output: Intake & Output 02/12/22 02/13/22 02/13/22 21:59 05:59 13:59 Intake Total 50 1580 Output Total 1999 1224 Balance -1950 355 Weight 132 lb 1 oz Intake: IV 50 1100 Lactated Ringers 1,000 ml @ 100 1000 mls/hr IV .Q10H [facility] Rx#: [id number] Zosyn 3.375 gm In Dextrose 5% 50 100 in Water 50 ml @ 100 mls/hr IV Q6H [facility] Rx#:[id number] Oral 480 Output: Urine Catheter Amount 1600 Void Amount 400 1225 Other: Meal Ice chips Percent of Meal Consumed 100% Feeding Ability Independent Urine Appearance Clear Clear Uretheral (Ruiz) Clear Urine Color Yellow Yellow Uretheral (Ruiz) Yellow Urine Odor Normal Normal Neck Neck exam: Present full ROM and normal inspection; Absent tenderness Respiratory Respiratory exam: Present normal respiratory exam and CTAB Cardiovascular Cardiovascular exam: Present normal rate and rhythm, RRR, +S1 and +S2; Absent gallop or JVD GI/Abdominal GI/Abdominal exam: Present normal bowel sounds, soft, distended (Minimal distention) and tenderness (No significant tenderness;) Extremities Exam Extremities exam: Present full ROM, normal inspection and neurovascular intact Neurological Exam Neurological exam: Present alert and oriented X3; Absent motor sensory deficit Psychiatric Psychiatric exam: Present normal affect and normal mood Skin Skin exam: Present intact and normal color A/P Assessment and plan (1) Cecal volvulus: Status: Acute (2) Esophageal reflux: Status: Chronic Comment: epigastric tenderness; intermittent; sometimes occurs in the middle of the night Qualifiers: Esophagitis presence: esophagitis presence not specified Qualified Code(s): K21.9 - Gastro-esophageal reflux disease without esophagitis; K21.9 - Gastro-esophageal reflux disease without esophagitis; K21.9 - Gastro-esophageal reflux disease without esophagitis (3) Alcohol abuse: Status: Acute Plan Advance to full liquid diet May have a beer with each meal Probable discharge tomorrow Time Spent With Patient Time: Total time spent is greater than 50% in coordination of care (as documented) at patient's floor/unit and/or counseling patient:
[2022-02-14] MEDS: METOCLOPRAMIDE 10 MG/2 ML VIAL IV SCH ×2 (05:58→12:47)
[2022-02-14] MEDS: PIPERACILLIN SODIUM/TAZOBACTAM 3.375 GM in DEXTROSE 5% IN WATER 50 ML IV SCH ×2 (05:59→12:47)
[2022-02-14 07:06] LABS: Basophils # (Auto) 0.07 K/mcL (0.00-0.30); Eosinophils # (Auto) 0.22 K/mcL (0.00-0.70); Eosinophils % (Auto) 3.1 % (0.0-7.0); Hematocrit 34.7 % (34.1-44.9); Lymphocytes # (Auto) 1.45 K/mcL (1.50-4.80); Lymphocytes % (Auto) 20.7 % (15.5-49.0); Mean Cell Volume 96.1 fL (80.0-100.0); Mean Corpuscular HGB Conc 34.6 g/dL (31.0-36.0); Mean Platelet Volume 10.1 fL (8.8-12.5); Monocytes # (Auto) 0.76 K/mcL (0.10-0.90); Monocytes % (Auto) 10.9 % (1.0-12.0); Platelet Count 207 K/mcL (140-440); RBC 3.61 M/mcL (3.59-5.38); Red Cell Distribution Width 11.9 % (11.5-14.5)
[2022-02-14 07:46] LABS: ALT/SGPT 13 U/L (<40); AST/SGOT 17 U/L (<32); Albumin 3.8 gm/dL (3.2-5.2); Albumin/Globulin Ratio 1.2 (1.0-2.3); Alkaline Phosphatase 92 U/L (39-117); Bilirubin,Direct < 0.2 mg/dL (0-0.3); Bilirubin,Total 0.6 mg/dL (0.1-1.0); Blood Urea Nitrogen 4 mg/dL (6-20); Carbon Dioxide 29 mmol/L (22-30); Chloride 104 mmol/L (96-108); Globulin 3.2 gm/dL (2.2-3.7); Glomerular Filtration Rate 109; Glucose 103 mg/dL (70-105); Lactate Dehydrogenase 208 U/L (135-225); Phosphorous 3.8 mg/dL (2.5-4.5); Triglycerides 104 mg/dL (<150)
[2022-02-14] MEDS: PANTOPRAZOLE 40 MG VIAL IV SCH (07:48)
[2022-02-14] MEDS ORDERED: POTASSIUM CHLORIDE 40 MEQ in DEXTROSE 5% IN WATER 500 ML IV ONE ×2 (09:00→13:00)
--- NOTE | 2022-02-14 15:04 | Discharge Summary ---
Discharge Provider Provider IMPORTANT FOLLOW-UP INFORMATION FOR PCP: Patient information: Note initiated : 02/14/22 at 3:03 pm Service Date, if different from initiated Date: [] Patient: Alice Melchor 56 y/o F admitted on 02/10/22 for Vomiting, Abdominal pain that radiates to flanks. Chief Complaint: [] Date of admission: 02/10/22 09:13 Discharge date: 02/14/22 Primary care physician: Pina West PA-C Admitting clinician: Divya Pierce Attending physician on admission: Divya Pierce Consults: 02/10/22 Consult to Physician [CONS] Stat Comment: Consulting Provider: Divya Pierce Reason For Exam: Physician to Consult Attending physician on discharge: Yola Pierce Discharging clinician: Divya Pierce COURSE Hospital Course Hospital course: X-ray 56-year-old female who presented with acute onset of abdominal pain with nausea. Abdominal x-ray shows dilated right colon and CT confirmed volvulus of the cecum. She had emergency laparotomy with right colectomy and primary anastomosis. She has done well. She has tolerated diet without difficulty and is having regular bowel movements and passing flatus. She is stable for discharge home. She did have mild decrease in potassium but is now taking potassium chloride orally. Patient is stable for discharge. Discharge diagnosis: Cecal volvulus Secondary discharge diagnosis: Cecal volvulus Small bowel obstruction Chronic kidney disease Reason for admission: Cecal volvulus Procedures: Laparotomy with right colectomy and ileocolic anastomosis Pertinent studies/significant findings: CT of abdomen and pelvis with IV contrast Complications: None Time Spent with Patient Time attestation: Total time spent providing and/or coordinating discharge services: Time spent: Less than 30 minutes Physical Examination Vital Signs Vital signs: Temp Pulse Resp BP Pulse Ox O2 Del Method O2 Flow Rate 99.7 F H 95 H 20 144/89 100 6 02/14/22 12:00 02/14/22 12:00 02/14/22 12:00 02/14/22 12:00 02/14/22 12:00 02/14/22 08:00 02/10/22 15:45 General physical appearance General physical exam: well developed and no distress Eyes Eye exam: PERRL and normal ocular movement ENT ENT exam: normal mucosa Head Head exam IM: Present atraumatic, normal inspection and normocephalic Neck Neck exam: no masses, no bruits, trachea midline, no lymphadenopathy and no venous distension Cardiovascular Cardiovascular exam IM: Present normal rate and rhythm, RRR, +S1 and +S2; Absent JVD Respiratory Respiratory exam: normal expansion, normal respiratory effort and clear to auscultation Abdomen Abdomen: Present tender (Mild incisional tenderness), bowel sounds (Normal active bowel sounds) and surgical scars (Surgical incision looks good) Integumentary Integumentary: Present no rash, no growths and no abnormal pigmentation Neurologic Neurologic: Present normal coordination and normal sensation Musculoskeletal Musculoskeletal: Present normal gait and normal posture Psychiatric Psychiatric: Present oriented to time, oriented to person, oriented to place, speech is normal and memory intact Discharge Plan Patient/Caregiver Discharge Instructions Activity: increase activity as tolerated Diet: Regular Diet Prescriptions: New potassium chloride 20 mEq tablet extended release 20 meq PO BID Qty: 10 0RF No Action lisinopril 5 mg tablet 5 mg PO QDAY Qty: 90 3RF Prescription drug monitoring program results: PDMP not reviewed Follow Up Plan Follow up with: Pina West PA-C [Primary Care Provider] - Divya Pierce MD [Physician] - (Office appointment in 2 weeks) Patient Disposition: Home, Self-Care Prognosis: Good Rehab Potential: Good I certify that the patient requires SNF services: No Overall status at discharge: patient is progressing back to baseline Discharge Orders: Discharge Order (Routine); Ordered 02/14/22 Ordered By: Divya Pierce Pending Pending Pending: Resuscitation Status Resuscitate (Full Code) Diet Full Liquid Diet Start Sun Feb 13 111 Acetaminophen (Acetaminophen 325 Mg Tablet) 650 mg PO Q4HP PRN; Protocol PRN Reason: Per Pain Protocol Last Admin: 02/12/22 20:52 Dose: 650 mg Documented By: BSAIMANI Piperacillin Sod/Tazobactam (Sod 3.375 gm/ Dextrose) 50 mls @ 100 mls/hr IV Q6H [facility]; Protocol Last Admin: 02/14/22 12:47 Dose: Not Given Documented By: Infusion: 02/14/22 06:36 Dose: 0 mls/hr Documented By: Admin: 02/14/22 05:59 Dose: 100 mls/hr Documented By: Infusion: 02/14/22 00:37 Dose: 0 mls/hr Documented By: ANTHONYINGERING Admin: 02/13/22 23:54 Dose: 100 mls/hr Documented By: Infusion: 02/13/22 17:29 Dose: 0 mls/hr Documented By: Admin: 02/13/22 16:55 Dose: 100 mls/hr Documented By: JUAN ALBERTONG Infusion: 02/13/22 12:33 Dose: 0 mls/hr Documented By: Admin: 02/13/22 11:49 Dose: 100 mls/hr Documented By: Infusion: 02/13/22 05:47 Dose: 0 mls/hr Documented By: Admin: 02/13/22 05:10 Dose: 100 mls/hr Documented By: Infusion: 02/12/22 23:48 Dose: 0 mls/hr Documented By: Admin: 02/12/22 23:18 Dose: 100 mls/hr Documented By: Infusion: 02/12/22 17:45 Dose: 0 mls/hr Documented By: Admin: 02/12/22 17:13 Dose: 100 mls/hr Documented By: Infusion: 02/12/22 13:42 Dose: 0 mls/hr Documented By: Admin: 02/12/22 12:47 Dose: 100 mls/hr Documented By: Infusion: 02/12/22 07:05 Dose: 0 mls/hr Documented By: JUAN ALBERTONG Admin: 02/12/22 05:16 Dose: 100 mls/hr Documented By: Infusion: 02/11/22 23:57 Dose: 0 mls/hr Documented By: Admin: 02/11/22 23:27 Dose: 100 mls/hr Documented By: Infusion: 02/11/22 19:22 Dose: 0 mls/hr Documented By: Admin: 02/11/22 18:52 Dose: 100 mls/hr Documented By: Infusion: 02/11/22 13:46 Dose: 0 mls/hr Documented By: Admin: 02/11/22 12:36 Dose: 100 mls/hr Documented By: Infusion: 02/11/22 06:05 Dose: 0 mls/hr Documented By: Admin: 02/11/22 05:34 Dose: 100 mls/hr Documented By: Infusion: 02/11/22 00:15 Dose: 0 mls/hr Documented By: Admin: 02/10/22 23:45 Dose: 100 mls/hr Documented By: Infusion: 02/10/22 18:08 Dose: 0 mls/hr Documented By: Admin: 02/10/22 17:38 Dose: 100 mls/hr Documented By: Infusion: 02/10/22 13:37 Dose: 100 mls/hr Documented By: Admin: 02/10/22 12:08 Dose: 100 mls/hr Documented By: MYRA Potassium Chloride 40 meq/ (Dextrose) 520 mls @ 130 mls/hr IV ONCE ONE Stop: 02/14/22 16:59 Last Admin: 02/14/22 12:47 Dose: Not Given Documented By: MAGALIS Metoclopramide HCl (Metoclopramide 10 Mg/2 Ml Vial) 10 mg IV Q6 [facility] Last Admin: 02/14/22 12:47 Dose: Not Given Documented By: Admin: 02/14/22 05:58 Dose: 10 mg Documented By: Admin: 02/13/22 23:54 Dose: 10 mg Documented By: Admin: 02/13/22 16:56 Dose: 10 mg Documented By: Admin: 02/13/22 11:49 Dose: 10 mg Documented By: Admin: 02/13/22 05:10 Dose: 10 mg Documented By: Admin: 02/12/22 23:18 Dose: 10 mg Documented By: Admin: 02/12/22 17:14 Dose: 10 mg Documented By: Admin: 02/12/22 12:47 Dose: 10 mg Documented By: Admin: 02/12/22 05:15 Dose: 10 mg Documented By: Admin: 02/11/22 23:27 Dose: 10 mg Documented By: Admin: 02/11/22 17:16 Dose: 10 mg Documented By: JALEEL Morphine Sulfate (Morphine 2 Mg/Ml Vial) 2 mg IV Q1HP PRN; Protocol PRN Reason: Per Pain Protocol Last Admin: 02/12/22 00:11 Dose: 2 mg Documented By: Admin: 02/11/22 14:44 Dose: 2 mg Documented By: Admin: 02/10/22 12:50 Dose: 2 mg Documented By: Admin: 02/10/22 10:35 Dose: 2 mg Documented By: Admin: 02/10/22 08:35 Dose: 2 mg Documented By: LYNNETTE Ondansetron HCl (Ondansetron 4 Mg/2 Ml Vial) 4 mg IV Q4HP PRN; Protocol PRN Reason: Nausea And Vomiting Last Admin: 02/10/22 10:51 Dose: 4 mg Documented By: MYRA Pantoprazole Sodium (Pantoprazole 40 Mg Vial) 40 mg IV BIDAC [facility] Last Admin: 02/14/22 07:48 Dose: 40 mg Documented By: Admin: 02/13/22 16:55 Dose: 40 mg Documented By: Admin: 02/13/22 07:30 Dose: 40 mg Documented By: Admin: 02/12/22 17:14 Dose: 40 mg Documented By: Admin: 02/12/22 08:12 Dose: 40 mg Documented By: Admin: 02/11/22 17:15 Dose: 40 mg Documented By: Admin: 02/11/22 07:33 Dose: 40 mg Documented By: Admin: 02/10/22 17:39 Dose: 40 mg Documented By: MYRA Shift Summary 02/14/22 04:28 Shift Summary by Brenda Christensen Primary Diagnosis: Cecal Volvulus Registration Status: Date of Surgery (if applicable): 02/10- R Colectomy Pertinent Medical Dx/Issue(s): Esophageal reflux, HTN, HLD, Alcohol use Med management (antibiotics, diuretics, BP): PRN pain meds, IV Zosyn, and Reglan Skin/Wound Care: Midline and incision covered with gauze and Tegaderm C/D/I Vital Signs with Trends: VSS on RA Lab: WNL Pain management (acute vs. chronic): C/o minimal pain but refused pain meds this shift. Neuro/Mental Status: A&O x4 Urinary Elimination Device: Voiding clear yellow urine via toilet Urinary output greater than 30mL/hr? Yes Date of last BM: 02/10; No BM this shift Lines/Tubes: IVs to RFA SL and LFA SL Activity: Independent in room Discharge Plan (needs, disposition, etc): TBD; Will return home with spouse upon when medically cleared Initialized on 02/14/22 04:28 - END OF NOTE
--- NOTE | 2022-02-15 14:52 | Operative Note ---
DATE OF OPERATION: 02/10/2022 DATE OF PROCEDURE: 02/10/2022 PREOPERATIVE DIAGNOSIS: Cecal volvulus. POSTOPERATIVE DIAGNOSIS: Cecal volvulus. PROCEDURE: Right colectomy. DESCRIPTION OF PROCEDURE: Under general anesthesia, the patient's abdomen was prepped and draped in a sterile field. A supraumbilical midline incision was made. The massively enlarged cecum was gently mobilized through this incision. The base of the cecum and showed up four 360-degree turns with obstruction with compression of the venous flow, but no compression of the arterial flow. The cecum was derotated until all vessels were in anatomic position. The cecum and right colon were mobile all the way up to the hepatic flexure. The terminal ileum was divided using Contour stapler. The ascending colon was divided at the hepatic flexure using Contour stapler. The mesocolon was then divided using a [employer]ant cautery device. Specimen was delivered off the table. Irrigation was carried out. A [id number] ileum to proximal transverse colon was carried out using a KATHY 55 stapler and a TA 60 stapler. Staple line was oversewn using running locking 2-0 Prolene. The mesocolon was closed with interrupted 3-0 silk. Irrigation was carried out. Sponge, needle, instrument, and blade counts were verified as correct. We changed gowns and gloves and instruments. The fascia was closed with running #1 Prolene. Subcutaneous tissue was closed with 2-0 Monocryl. Skin was closed with [place]. The patient tolerated the procedure well. She was awakened, transferred to a bed, and taken to the postanesthetic care unit in satisfactory condition. LCS:ericka Job ID: [id number] Doc ID: [id number] Divya Pierce M.D.
== END 2022-02-14 16:00 | disposition home or self-care (01) | DRG 331 ==
LOC: ED 05:46 → MEDSUR 09:13
PROVIDERS: ADMIT Family Medicine Adult Medicine; ATTEND Family Medicine Adult Medicine